=== PATIENT | male | born 1955 | race Caucasian/White ===

== ENCOUNTER → 2025-04-29 01:10 | Outpatient (BNV) | payer MEDICARE, MEDICAID, SELFPAY | PROVIDERS: Visit Provider Radiology Diagnostic Radiology | DX: M25.721 Osteophyte, right elbow (principal) | CPT/HCPCS: 73080 ==

== ENCOUNTER 2025-04-29 01:23 | Emergency (ER) | payer MEDICARE, MEDICAID, SELFPAY ==
--- NOTE | ~2025-04-29 | XR_ITS ---
CLINICAL HISTORY: Pain RIGHT elbow 3 view right elbow Comparison: None provided Findings: This examination is mildly limited by suboptimal patient positioning, mildly limiting evaluation of the right radial neck. No acute fractures. Normal alignment. Degenerative changes are present at the right elbow with multifocal osteophytes. A right elbow effusion is not excluded on this exam. No radiopaque foreign body. IMPRESSION: 1. Mildly limited examination related to suboptimal patient positioning. No clear fracture or dislocation injury identified at the right elbow. 2. Possible right elbow effusion. This document has been electronically signed by: Emmett Villatoro MD on 04/29/2025 02:47:09
[2025-04-29 01:43] VITALS: BP 150/79; PULSE 68; RESP 16; TEMP 36.2; O2SAT 100; BMI 27.1
--- NOTE | 2025-04-29 02:20 | PC.NURSE ---
Pt returns from XRay.
[2025-04-29 06:39] VITALS: BP 169/77; PULSE 60; RESP 16; TEMP 36.6; O2SAT 98
--- NOTE | 2025-04-29 06:41 | ED_ITS ---
HPI - Extremity Problem General Chief complaint: Extremity Injury, Upper Stated complaint: arm pain Time Seen by Provider: 04/29/25 06:41 History of Present Illness ED Provider: Ken ANDRADE Narrative: The patient is a 69-year-old male with a history of type 2 diabetes who says that last night at around 7PM he noticed a pain in his right elbow. He did not feel that he had injured himself in any way. He felt that the pain was making it difficult for him to eat because he had trouble getting his hand close enough to his mouth because of pain in the elbow. He later tried to go to bed but had trouble sleeping because of the pain and ultimately came to the emergency room early this morning. He has had no fever, sweats, chills. He has not had any problems like this before. He is a type 2 diabetic. He has had problems with arthritis in the past including in his right hip. He has had a total hip replacement. He says he has been picking up his great grandchild a lot and he has also recently started doing some exercises with his arms with the an exercise ball. No numbness or tingling in the hand. No redness or swelling. Related Data Allergies Allergy/AdvReac Type Severity Reaction Status Date / Time No Known Allergies Allergy Verified 04/29/25 01:47 Review of Systems Review of Systems: Yes all other systems are reviewed and are negative [facility] Social History Social History Unable to assess alcohol history related to: Unknown Smoked in Last 30 Days: No Use of substances other than those prescribed or required for medical reasons: Unknown Advance Directives: No Advance Directives Information Provided: Yes Do you have a plan to hurt others: No Plan Physical Exam Vital Signs: Vital Signs: Last Vital Signs Temp 97.8 F 04/29/25 07:22 Pulse 60 04/29/25 07:22 Resp 16 04/29/25 07:22 BP 169/77 H 04/29/25 07:22 Pulse Ox 98 04/29/25 07:22 O2 Del Method Room Air 04/29/25 07:22 BMI result Body Mass Index 27.1 Const: Other: The patient is a very pleasant 69-year-old man who was awake and alert, pleasant cooperative. He does not appear acutely ill or in distress. HEENT: Other: The face is symmetrical. Mucous membranes moist. Eyes: Other: Pupils are round equal, conjunctivae are clear, extraocular movements intact Neck: Neck: Yes normal visual inspection, Yes full ROM and Yes no JVD Resp: Effort & Inspection: normal respiratory effort Auscultation: clear to auscultation bilaterally Cardio: Rate: regular rate Rhythm: regular rhythm Heart sounds: S1 normal heart sound present and S2 normal heart sound present Skin: Other: The skin of the right arm and elbow is unremarkable. No erythema, no warmth. Neuro: Other: The patient is awake and alert with a normal mental status. Cranial nerves are intact. He has normal strength and sensation in the right hand. He has some limitation to use of the right arm because of pain at extremes of range of motion of the right elbow but is otherwise neurologically intact. Extrem: Other: The patient has some generalized tenderness about the right elbow. No gross soft tissue swelling of the joint. No warmth. No redness. The patient has pain at extremes of range of motion of the elbow but can put the elbow through a very large range of motion. Medications Administered Discontinued Medications Generic Name Dose Route Start Last Admin Trade Name Frances PRN Reason Stop Dose Admin Acetaminophen 975 mg 04/29/25 06:57 04/29/25 07:18 Acetaminophen 325 Mg Tablet PO 04/29/25 06:58 975 mg ONCE ONE Administration Ibuprofen 400 mg 04/29/25 06:57 04/29/25 07:18 Ibuprofen 400 Mg Tablet PO 04/29/25 06:58 400 mg ONCE ONE Administration Medical Decision Making Medical Decision Making [facility] Narrative: The patient is a 69-year-old man with a history of arthritis who was here today because of right elbow pain that started yesterday evening. An x-ray shows some arthritic changes and possibly a small effusion. His physical exam is quite reassuring. No evidence of a septic joint. I think he has some degree of arthritic irritation probably related to excessive movements of the right arm. He does a lot of lifting and has recently started some arm exercises. This is probably a repetitive motion injury exacerbating an underlying arthritic problem. He will be given a sling and advised to use ibuprofen and acetaminophen. Discharge Plan Discharge Clinical Impression: Effusion of right elbow, Arthritis of right elbow Patient Disposition: Home, Self-Care Instructions: Swollen Joint (ED) Additional Instructions: Your x-ray shows that you have some arthritis at your elbow joint and there is also some swelling in the joint. I suspect that your arthritis has been exacerbated by a lot of movements of the arm, possibly by exercises you has been doing or by lifting your great grandchild. I think this will probably get significantly better by simply resting the arm and using ibuprofen and acetaminophen for several days. Please contact your primary care doctor to make a follow up appointment. I think that this problem can probably be handled by your primary care doctor but if you wish to see more of a specialist you can follow up with your orthopedist Dr. Berkowitz (if he does anything with the elbows) or you can contact the [facility]. Therefore please take 400 mg of ibuprofen every 6 hours as needed for pain. You may also take 2 extra-strength acetaminophen (Tylenol), up to 3 times per day as well. Return to the emergency room if you develop a fever or other worsening symptoms. Referrals: [facility] [place] [facility] [Provider Group] Shay Berkowitz MD [Physician, Orthopedics] Bakari Martel MD [Physician, Internal Medicine] Referral Note: right elbow arthritis, effusion Interventions: ED Discharge Assessment Last Done: 04/29/25 07:22 Discharge Date/Time: 04/29/25 07:22 Print Language: [place] Citizen
--- NOTE | 2025-04-29 06:54 | PC.NURSE ---
at bedside for primary eval.
[2025-04-29 07:22] VITALS: BP 169/77; PULSE 60; RESP 16; TEMP 36.6; O2SAT 98
== END 2025-04-29 07:22 | disposition home or self-care (01) ==
PROVIDERS: Emergency Provider Emergency Medicine
DX: M19.021 Primary osteoarthritis, right elbow (principal); M25.521 Pain in right elbow
CPT/HCPCS: 73080; 99283; 99284

== ENCOUNTER 2025-07-14 08:13 | Outpatient (AMB) | payer MEDICARE, MEDICAID, SELFPAY ==
--- NOTE | 2025-07-14 08:26 | MHC.OFFVIS ---
Intake Visit Reasons: [employer]-Arthritis/effusion of right elbow Intake Note: Harshal is a 69 year old left hand dominant male who presents today as a new patient for an evaluation of right elbow. Patient was seen [place] [facility] [facility] [place] this [place] with complaints of elbow pain, denied any traumatic injury. He mentioned frequently picking up his grandchild and exercises. X-rays were taken revealing arthritis and swelling, suggested resting the arm and to use of ibuprofen and Tylenol for the pain. Today patient reports he is doing well, states lump that was at his elbow is no longer present. He denies any pain. Allergies No Known Allergies Allergy (Verified 07/14/25 08:33) Medication List - Last Reconciled 07/14/25 by Sachi Blair PA-C amlodipine 5 mg PO DAILY aspirin 81 mg PO DAILY atorvastatin 80 mg PO DAILY clonazepam 0.5 mg PO DAILY insulin aspart U-100 (Novolog U-100 Insulin aspart) subcut DAILY lisinopril 20 mg PO DAILY sertraline 50 mg PO DAILY HPI HPI [employer]-Arthritis/effusion of right elbow: Details: 69-year-old gentleman to the office today for pain in the right elbow. He states he had discomfort back in April but since seen his primary care provider who gave him some ibuprofen he has noticed significant relief. He no longer has swelling or irritation with lifting or repetitive motions. [facility] Surgical History (Updated 07/14/25 @ 08:28 by MONE Summers) History of right hip replacement Social History (Updated 07/14/25 @ 08:28 by MONE Summers) Unable to assess alcohol history related to: Unknown Patient Tobacco Use Status: Current everyday Tobacco user Current occupational status: disabled Current occupation: left hand dominant Review of Systems Const All systems reviewed & are unremarkable except as noted in HPI and below Physical Exam Const General: cooperative and no acute distress Orientation/consciousness: patient oriented x3 Resp Effort & Inspection: normal respiratory effort and able to speak in complete sentences Cardio Peripheral pulses: Peripheral pulses 2+ throughout Neuro General: patient oriented x3 Extrem Other: Right elbow is normal to inspection without any swelling or erythema. He has full range of motion without crepitus. He can supinate pronate without pain. No pain with resisted flexion or extension of the wrist. Neurovascularly intact. Assessment & Plan Assessment & Plan (1) Right elbow tendonitis: Code(s): M77.8 - Other enthesopathies, not elsewhere classified Category: Medical Plan: Likely resolve tendonitis of the right elbow. The patient will continue with activities as tolerated. NSAIDs as needed. If symptoms arise or there was concerns he will contact our office otherwise follow up as needed. Coding Level of Care Code New Pt Level 3 (71137) Complex EM visit Add On G2211 Diagnoses Right elbow tendonitis M77.8
== END 2025-07-14 09:16 | disposition home or self-care (01) ==
LOC: HO.HOS 08:14
PROVIDERS: Visit Provider Physician Assistant
DX: M77.8 Other enthesopathies, not elsewhere classified (principal)
CPT/HCPCS: 99203; G2211

== ENCOUNTER → 2025-07-14 08:13 | Outpatient (BNVA) | payer MEDICARE, MEDICAID, SELFPAY | PROVIDERS: Visit Provider Physician Assistant | DX: M25.521 Pain in right elbow (principal); M77.8 Other enthesopathies, not elsewhere classified | CPT/HCPCS: 99202 ==